=== PATIENT | male | born 1965 | race Asian ===

== ENCOUNTER 2022-08-04 20:54 | Emergency (ER) | payer OTHER ==
[~2022-08-04] VITALS: Ht 167.6 cm; Wt 72.2 kg
[2022-08-04 21:02] VITALS: TEMP 98.3
[2022-08-04 23:46] VITALS: BP 139/90; PULSE 61; RESP 16
== END 2022-08-04 23:49 | disposition home or self-care (01) ==
LOC: EMS 20:57
DX: S61.412A Laceration without foreign body of left hand, initial encounter (principal); I10 Essential (primary) hypertension; F17.210 Nicotine dependence, cigarettes, uncomplicated; X58.XXXA Exposure to other specified factors, initial encounter; Y93.89 Activity, other specified; Y92.89 Other specified places as the place of occurrence of the external cause; Y99.0 Civilian activity done for income or pay
CPT/HCPCS: 12001; 99282; Z7502